=== PATIENT | female | born 1940 | race Caucasian/White ===

== ENCOUNTER 2022-05-20 12:32 | Emergency (ER) | payer MEDICARE ==
[~2022-05-20] VITALS: Ht 157.5 cm; Wt 68.2 kg
[2022-05-20 15:09] LABS: BASO% 0.5 % (0-3); EOS% 2.1 % (0-8); HEMOGLOBIN 10.6 g/dl (12.0-16.0); LYMPH% 13.1 % (15-41); MEAN CELL VOLUME 91.7 fL CALC (80.0-100.0); MEAN CORPUSCULAR HGB 30.4 pG CALC (26.0-32.0); MEAN CORPUSCULAR HGB CONC 33.1 g/dL CAL (32.0-36.0); MONO% 10.3 % (2-13); NEUT# 6.15 thou/uL (2.00-7.15); RED BLOOD COUNT 3.49 mill/uL (4.20-5.60); RED CELL DISTRI WIDTH 14.1 % (11.5-15.5)
[2022-05-20 15:17] LABS: URINE BILIRUBIN - DIPSTICK NEGATIVE (NEGATIVE); URINE BLOOD DIPSTICK NEGATIVE (NEGATIVE); URINE COLOR YELLOW; URINE GLUCOSE - DIPSTICK NEGATIVE (NEGATIVE); URINE KETONE NEGATIVE (NEGATIVE); URINE LEUK ESTERASE NEGATIVE (NEGATIVE); URINE PH 5.5 (4.5-8.0); URINE PROTEIN - DIPSTICK 100 mg/dL (NEG-TRACE); URINE SPECIFIC GRAVITY 1.025; URINE UROBILINOGEN - DIPSTICK 0.2 E.U./dL (0.2)
[2022-05-20 15:18] LABS: URINE EPITHELIAL CELLS FEW EPI/hpf (0-FEW); URINE MUCUS FEW hpf (NONE-FEW); URINE NITRITE - DIPSTICK NEGATIVE (Negative)
[2022-05-20 15:30] LABS: ALBUMIN 3.6 g/dL (3.2-5.0); BILIRUBIN, TOTAL 0.5 mg/dL (0.0-1.4); TOTAL PROTEIN 6.6 g/dL (6.3-8.2)
[2022-05-20 15:35] LABS: POTASSIUM 5.9 mmol/l (3.5-5.1)
[2022-05-20] MEDS ORDERED: SPS15 GM/601 PO (17:26)
[2022-05-20 17:39] VITALS: BP 146/51
[2022-05-21] MEDS ORDERED: SPS15 GM/601 PO (09:20)
== END 2022-05-20 18:00 | disposition home or self-care (01) ==
LOC: ED 12:32
PROVIDERS: Family Medicine
DX: K92.1 Melena (principal); E87.5 Hyperkalemia; E11.9 Type 2 diabetes mellitus without complications; K94.19 Other complications of enterostomy; Y83.3 Surgical operation with formation of external stoma as the cause of abnormal reaction of the patient, or of later complication, without mention of misadventure at the time of the procedure

== ENCOUNTER 2022-10-08 14:04 | Emergency (ER) | payer MEDICARE ==
[~2022-10-08] VITALS: Ht 157.5 cm; Wt 64.0 kg
[2022-10-08] VITALS (17 sets, daily range): BP systolic 124–210; BP diastolic 40–97
[~2022-10-08 14:04] MED LIST: SPS15 GM/601 PO
[2022-10-08 14:38] LABS: BASO% 0.4 % (0-3); EOS% 1.7 % (0-8); HEMATOCRIT 38.3 % (37.0-47.0); HEMOGLOBIN 11.8 g/dl (12.0-16.0); IMMATURE GRANULOCYTES 0.4 % (0.0-5.0); MEAN CORPUSCULAR HGB 28.6 pG CALC (26.0-32.0); MEAN CORPUSCULAR HGB CONC 30.8 g/dL CAL (32.0-36.0); MONO% 7.9 % (2-13); NEUT# 6.58 thou/uL (2.00-7.15); NEUT% 77.6 % (42-76); RED BLOOD COUNT 4.12 mill/uL (4.20-5.60); RED CELL DISTRI WIDTH 15.4 % (11.5-15.5)
[2022-10-08 14:56] LABS: ALBUMIN 3.8 g/dL (3.2-5.0); ALKALINE PHOSPHATASE 69 u/l (38-126); BILIRUBIN, TOTAL 0.7 mg/dL (0.02-1.3); BUN 39 mg/dL (8-23); BUN/CREATININE RATIO 17 (12-20 (CALC)); CHLORIDE 110 mmol/l (95-108); CREATININE 2.3 mg/dL (0.5-1.0); GFR FOR AFR.AMER. 25 ML/MIN (>=60 (CALC)); GFR OTHER RACES 20 ML/MIN (>=60 (CALC)); SGOT/AST 41 u/l (9-36); SODIUM 138 mmol/l (137-146); TOTAL PROTEIN 6.5 g/dL (6.3-8.2)
[2022-10-08 15:06] LABS: ANION GAP 16 (6-22 (CALC)); CARBON DIOXIDE 17 mmol/l (22-30); POTASSIUM 5.3 mmol/l (3.5-5.1)
[2022-10-08 16:01] LABS: URINE BILIRUBIN - DIPSTICK NEGATIVE (NEGATIVE); URINE BLOOD DIPSTICK NEGATIVE (NEGATIVE); URINE COLOR YELLOW; URINE GLUCOSE - DIPSTICK >=1000 mg/dL (NEGATIVE); URINE KETONE NEGATIVE (NEGATIVE); URINE LEUK ESTERASE TRACE (NEGATIVE); URINE PH 5.5 (4.5-8.0); URINE PROTEIN - DIPSTICK 30 mg/dL (NEG-TRACE); URINE SPECIFIC GRAVITY 1.025; URINE UROBILINOGEN - DIPSTICK 0.2 E.U./dL (0.2)
[2022-10-08 16:06] LABS: URINE NITRITE - DIPSTICK NEGATIVE (Negative); URINE SQUAMOUS EPITHELIAL CELL FEW EPI/hpf (0-FEW)
== END 2022-10-08 17:56 | disposition home or self-care (01) ==
LOC: ED 14:04
PROVIDERS: Nurse Practitioner
DX: E87.5 Hyperkalemia (principal); I12.9 Hypertensive chronic kidney disease with stage 1 through stage 4 chronic kidney disease, or unspecified chronic kidney disease; E11.22 Type 2 diabetes mellitus with diabetic chronic kidney disease; N18.9 Chronic kidney disease, unspecified

== ENCOUNTER 2023-11-29 14:05 | Emergency (ER) | payer MEDICARE ==
[~2023-11-29] VITALS: Ht 157.5 cm; Wt 63.5 kg
[~2023-11-29 14:05] MED LIST changes: +AMLODIPINE BESYL5 MG PO; +ATORVASTATIN CA10 MG PO; +CYANOCOBAL1000 MCG/M IM; +DIPHEN/ATROP2.5 MG PO; +IMODIUM A-D2 M3 PO; +IRON PO; +LABETALOL PO; +LEVO-T150 MCG PO; +LEVOTHYROXIN150 MC1 PO; +MAGNESIUM 250 M1 TAB PO; +OMEPRAZOLE DR40 MG PO; +OZEMPIC 8 MG/3M1 INJ IM; +TYLENOL500 MG PO; +VITAMIN D1.25 MG PO
[2023-11-29 14:21] VITALS: BP 174/55
[2023-11-29 14:31] VITALS: BP 148/56
[2023-11-29 14:48] VITALS: BP 141/57
[2023-11-29 14:50] VITALS: BP 141/57
== END 2023-11-29 14:54 | disposition home or self-care (01) ==
LOC: ED 14:05
DX: Z03.823 Encounter for observation for suspected inserted (injected) foreign body ruled out (principal); I10 Essential (primary) hypertension; E11.9 Type 2 diabetes mellitus without complications; Z79.85 Long-term (current) use of injectable non-insulin antidiabetic drugs